=== PATIENT | female | born 1950 | race American Indian/Alaskan Native ===

== ENCOUNTER 2019-02-28 11:28 | Outpatient (CLI) | payer MEDICARE ==
[2019-02-28 12:10] LABS: Hematocrit 43.9 % (30.3-42.9); Hemoglobin 14.2 gm/dl (10.1-14.3); Mean Corpuscular HGB Conc 32 % (30-34); Mean Corpuscular Volume 86 fl (79-97); Platelet Count 253 K/mm3 (140-440); Red Blood Count 5.08 M/mm3 (3.65-5.03)
[2019-02-28 12:30] LABS: Alanine Aminotransferase 12 units/L (7-56); Albumin 4.1 g/dL (3.9-5); BUN/Creatinine Ratio 32; Blood Urea Nitrogen 19 mg/dL (7-17); Calcium 9.4 mg/dL (8.4-10.2); Hemolysis Index 15
--- NOTE | 2019-02-28 14:59 | Vascular Lab Report ---
PROCEDURE: VL VENOUS DUPLEX LE BILAT TECHNIQUE: Duplex Doppler sonography of the BILATERAL lower extremities. Stark scale imaging with and without compression, spectral waveform analysis with and without augmentation, and color flow Dopple r were employed. HISTORY: SWELLING COMPARISONS: None FINDINGS: RIGHT LOWER EXTREMITY: Deep Venous Thrombus: None Superficial Venous Thrombus: None Venous valvular incompetence: There is reflux in the right common femoral vein. There is superficial reflux in the right saphenofemoral junction and right greater saphenous vein. Soft tissue abnormality: There is edema around the ankle. The right greater saphenous vein measures 0.4 cm in diameter in the proximal thigh, 0.58 cm in the mi dportion, 0.54 cm in the distal portion, 0.43 cm at the level of the knee, and 0.39 cm at the level o f the proximal calf. LEFT LOWER EXTREMITY: Deep Venous Thrombus: None Superficial Venous Thrombus: None Venous valvular incompetence: There is reflux in the left common femoral vein. There is a superficia l reflux in the left saphenofemoral junction and greater saphenous vein Soft tissue abnormality: There is edema around the ankle. The left greater saphenous vein measures 0.49 cm in diameter at the level of the proximal thigh, 0.42 cm in the mid thigh, 0.42 cm in the distal thigh, and 0.41 cm at the level of the knee. IMPRESSION: No evidence of deep venous thrombosis. Venous incompetence at the bilateral common femoral veins. Venous incompetence at the bilateral saphenofemoral junction and within the bilateral greater sapheno us veins. This document is electronically signed by Bettie Myrick MD., February 28 2019 02:57:20 PM ET
== END 2019-02-28 11:29 | disposition home or self-care (01) ==
LOC: CT 11:28
PROVIDERS: ATTEND Internal Medicine
DX: I26.99 Other pulmonary embolism without acute cor pulmonale (principal); R06.02 Shortness of breath; J30.89 Other allergic rhinitis; R60.0 Localized edema
CPT/HCPCS: 36415; 36600; 80053; 82785; 82803; 85027; 85379; 93970

== ENCOUNTER 2019-05-07 13:23 | Outpatient (CLI) | payer MEDICARE ==
[2019-05-07 14:24] LABS: Blood Urea Nitrogen 12 mg/dL (7-17)
--- NOTE | 2019-05-07 15:26 | Cat Scan Report ---
CTA CHEST WITH IV CONTRAST INDICATION / CLINICAL INFORMATION: MAIN: R06.02) Abnormalities of breathing/I26.99)Other pulmonary emboli TECH NOTES: PT ADV SHE DOES NOT KNOW WHY DR ORDERED EXAM. HX: COPD IV SPIKED BUT DID NOT INFILTRATE. TECHNIQUE: Axial CT images were obtained through the chest after injection of IV contrast. 3 plane MIP and/or 3D reconstructions were produced. All CT scans at this location are performed using CT dose reduction f or ALARA by means of automated exposure control. COMPARISON: None available. FINDINGS: PULMONARY ARTERIES: No pulmonary emboli. THORACIC AORTA: No significant abnormality. HEART: No significant abnormality. CORONARY ARTERIES: No significant calcification. PLEURA: No pleural effusion. No pneumothorax. LYMPH NODES: Multiple enlarged mediastinal lymph nodes are present. A pretracheal subcarinal lymph no de measures 0.93 cm in short axis a subcarinal lymph node measures 1.4 cm in short axis. A aortopulmo nary window lymph node measures 0.98 cm in short axis. Also noted are several densely calcified media stinal lymph nodes. LUNGS: Minimum patchy parenchymal changes present along the fissure lingular segment left upper lobe. Bronchiectasis right middle lobe is noted. ADDITIONAL FINDINGS: None. UPPER ABDOMEN: A small hiatal hernia is present. SKELETAL STRUCTURES: No significant osseous abnormality. IMPRESSION: 1. No CT evidence for pulmonary embolism. 2. Prominent mediastinal lymph nodes as noted 3. Bronchiectasis right middle lobe 4. Hiatal hernia Signer Name: Walker Quintero MD Signed: 05/07/2019 3:22 PM Workstation Name: [id number]
== END 2019-05-07 13:24 | disposition home or self-care (01) ==
LOC: CT 13:23
PROVIDERS: ATTEND Internal Medicine
DX: J47.9 Bronchiectasis, uncomplicated (principal); K44.9 Diaphragmatic hernia without obstruction or gangrene
CPT/HCPCS: 36415; 71275; 82565; 84520; Q9967